=== PATIENT | female | born 1985 | race Asian ===

== ENCOUNTER 2022-01-13 10:57 | Outpatient (CLI) | payer OTHER | END 2022-01-13 19:53 | disposition home or self-care (01) | LOC: RAD 10:57 | PROVIDERS: ATTEND Physician Assistant Medical | DX: M46.1 Sacroiliitis, not elsewhere classified (principal); M54.2 Cervicalgia ==

== ENCOUNTER 2023-04-28 08:08 | Outpatient (CLI) | payer OTHER | END 2023-04-28 20:08 | disposition home or self-care (01) | LOC: US 08:08 | PROVIDERS: ATTEND Internal Medicine | DX: R14.0 Abdominal distension (gaseous) (principal) ==